=== PATIENT | female | born 1990 | race Caucasian/White ===

== ENCOUNTER 2023-01-30 16:40 | Emergency (ER) | payer OTHER ==
[~2023-01-30] VITALS: Ht 160 cm; Wt 49.9 kg
[2023-01-30 17:02] VITALS: BP 130/70
[2023-01-30] MEDS ORDERED: SULTRIDS PO (20:06)
[2023-01-30] MEDS ORDERED: CEPH500 PO (20:06)
== END 2023-01-30 20:18 | disposition home or self-care (01) ==
LOC: ER 16:40
DX: L02.212 Cutaneous abscess of back [any part, except buttock and flank] (principal); Z88.8 Allergy status to other drugs, medicaments and biological substances; Z91.040 Latex allergy status; F43.10 Post-traumatic stress disorder, unspecified; F17.290 Nicotine dependence, other tobacco product, uncomplicated; F17.200 Nicotine dependence, unspecified, uncomplicated
CPT/HCPCS: 10061; 90471; 90714; 99282-25; A9270

== ENCOUNTER 2023-04-05 22:06 | Emergency (ER) | payer OTHER ==
[~2023-04-05] VITALS: Ht 160 cm; Wt 57.6 kg
[~2023-04-05 22:06] MED LIST: CEPH500 PO; SULTRIDS PO
[2023-04-05 22:09] VITALS: BP 156/107
[2023-04-08 01:10] LABS: CHLAMYDIA TRACHOMATIS, NAA Negative (Negative)
== END 2023-04-06 00:13 | disposition home or self-care (01) ==
LOC: ER 22:06
PROVIDERS: Student in an Organized Health Care Education/Training Program
DX: N89.8 Other specified noninflammatory disorders of vagina (principal); R10.2 Pelvic and perineal pain; Z88.8 Allergy status to other drugs, medicaments and biological substances; Z91.040 Latex allergy status; F43.10 Post-traumatic stress disorder, unspecified; F17.200 Nicotine dependence, unspecified, uncomplicated; F17.290 Nicotine dependence, other tobacco product, uncomplicated
CPT/HCPCS: 76856; 81025; 87491; 87591; 99283-25

== ENCOUNTER 2023-05-28 15:32 | Emergency (ER) | payer OTHER ==
[~2023-05-28] VITALS: Ht 160 cm; Wt 49.9 kg
[2023-05-28 16:03] VITALS: BP 132/89
[2023-05-28] MEDS ORDERED: ONDA4ODT MM (16:08)
== END 2023-05-28 16:15 | disposition home or self-care (01) ==
LOC: ER 15:32
DX: T74.11XA Adult physical abuse, confirmed, initial encounter (principal); S09.90XA Unspecified injury of head, initial encounter; R45.1 Restlessness and agitation; H53.8 Other visual disturbances; Z88.8 Allergy status to other drugs, medicaments and biological substances; Z91.040 Latex allergy status; Z79.899 Other long term (current) drug therapy; F43.10 Post-traumatic stress disorder, unspecified; F17.200 Nicotine dependence, unspecified, uncomplicated; F17.290 Nicotine dependence, other tobacco product, uncomplicated
CPT/HCPCS: 99284

== ENCOUNTER 2023-06-05 01:22 | Emergency (ER) | payer OTHER ==
[~2023-06-05] VITALS: Ht 157.5 cm; Wt 59.0 kg
[~2023-06-05 01:22] MED LIST changes: +ONDA4ODT MM
[2023-06-05 01:44] VITALS: BP 146/88
== END 2023-06-06 02:49 | disposition home or self-care (01) ==
LOC: ER 01:22
DX: T63.441A Toxic effect of venom of bees, accidental (unintentional), initial encounter (principal); Z88.8 Allergy status to other drugs, medicaments and biological substances; Z91.040 Latex allergy status; Z79.899 Other long term (current) drug therapy; F43.10 Post-traumatic stress disorder, unspecified; F17.200 Nicotine dependence, unspecified, uncomplicated
CPT/HCPCS: 96372; 99283-25; A9270; J1885

== ENCOUNTER 2023-09-01 12:56 | Emergency (ER) | payer OTHER ==
[~2023-09-01] VITALS: Ht 162.6 cm; Wt 54.4 kg
[2023-09-01 13:29] VITALS: BP 123/80
[2023-09-01 18:12] LABS: Source, Urine Clean Catch
[2023-09-01 18:16] LABS: Appearance, Urine Hazy (Clear); Bilirubin, Urine Neg (Neg); Blood, Urine Neg (Neg); Glucose Qualitative, Urine Neg (Neg); Ketones, Urine Neg (Neg); Leukocyte Esterase, Urine 1+ (Neg); Nitrite, Urine Pos (Neg); Protein, Urine Neg (Neg); Specific Gravity, Urine 1.015 (1.003-1.022); Urobilinogen, Urine NORM (Normal)
[2023-09-01 18:24] LABS: Color, Urine Pale Yellow (P-Yellow)
[2023-09-01 18:26] LABS: Bacteria Many /hpf; Red Blood Cells, Urine Not Seen /hpf (0-2); Squamous Epithelial Cells Few /hpf (Few)
== END 2023-09-01 19:31 | disposition home or self-care (01) ==
LOC: ER 12:56
PROVIDERS: Physician Assistant
DX: T74.21XA Adult sexual abuse, confirmed, initial encounter (principal); F31.9 Bipolar disorder, unspecified; F17.200 Nicotine dependence, unspecified, uncomplicated; Z88.8 Allergy status to other drugs, medicaments and biological substances; Z91.040 Latex allergy status
CPT/HCPCS: 81001; 81025

== ENCOUNTER 2023-10-20 20:04 | Emergency (ER) | payer OTHER ==
[~2023-10-20] VITALS: Ht 162.6 cm; Wt 49.9 kg
[2023-10-20 20:16] VITALS: BP 134/79
== END 2023-10-20 22:50 | disposition home or self-care (01) ==
LOC: ER 20:04
DX: Z00.00 Encounter for general adult medical examination without abnormal findings (principal); F31.9 Bipolar disorder, unspecified; F44.81 Dissociative identity disorder; F20.9 Schizophrenia, unspecified; F17.200 Nicotine dependence, unspecified, uncomplicated; Z88.8 Allergy status to other drugs, medicaments and biological substances; Z91.040 Latex allergy status
CPT/HCPCS: 99283

== ENCOUNTER 2024-05-31 16:07 | Emergency (ER) | payer OTHER ==
[~2024-05-31] VITALS: Ht 160 cm; Wt 77.1 kg
[2024-05-31 16:17] VITALS: BP 117/76
[2024-05-31] MEDS ORDERED: OLAN10 PO (16:21)
[2024-05-31] MEDS ORDERED: LATUDA80 M1 PO ×3 (16:22→17:35)
[2024-05-31] MEDS ORDERED: OLANZAPINE PO ×2 (16:23→17:35)
== END 2024-05-31 16:24 | disposition home or self-care (01) ==
LOC: ER 16:07
DX: Z76.0 Encounter for issue of repeat prescription (principal); F17.200 Nicotine dependence, unspecified, uncomplicated; F43.10 Post-traumatic stress disorder, unspecified; Z79.899 Other long term (current) drug therapy; Z91.040 Latex allergy status; Z88.8 Allergy status to other drugs, medicaments and biological substances
CPT/HCPCS: 99281

== ENCOUNTER 2024-06-30 14:30 | Emergency (ER) | payer OTHER ==
[~2024-06-30] VITALS: Ht 160 cm; Wt 77.1 kg
[~2024-06-30 14:30] MED LIST changes: +LATUDA80 M1 PO; +OLAN10 PO; +OLANZAPINE PO
[2024-06-30 14:58] LABS: BASOPHILS ABSOLUTE AUTO 0.04 K/mm3 (0.00-0.23); BASOPHILS PERCENT AUTO 1 % (0-2); EOSINOPHILS ABSOLUTE AUTO 0.15 K/mm3 (0.00-0.68); EOSINOPHILS PERCENT AUTO 3 % (0-6); Hematocrit 36.2 % (33.0-51.0); Hemoglobin 12.2 g/dL (11.5-16.0); IMMATURE GRAN ABSOLUTE AUTO 0.01 K/mm3 (0.00-0.10); IMMATURE GRAN PERCENT AUTO 0 % (0-1); LYMPHOCYTES ABSOLUTE AUTO 1.14 K/mm3 (0.84-5.20); LYMPHOCYTES PERCENT AUTO 26 % (21-46); MONOCYTES ABSOLUTE AUTO 0.63 K/mm3 (0.16-1.47); MONOCYTES PERCENT AUTO 14 % (4-13); Mean Corpuscular HGB 30.1 pg (26.0-34.0); Mean Corpuscular HGB Conc 33.7 g/dL (31.5-36.5); Mean Corpuscular Volume 89 fL (80-100); Mean Platelet Volume 9.1 fL (9.1-12.4); NEUTROPHILS ABSOLUTE AUTO 2.48 K/mm3 (1.96-9.15); NEUTROPHILS PERCENT AUTO 56 % (41-73); Platelet Count 289 K/mm3 (150-400); RDW Coefficient Variation 12.3 % (11.7-14.2); Red Blood Cell Count 4.05 M/mm3 (3.80-5.20); White Blood Cell Count 4.45 K/mm3 (4.00-11.30)
[2024-06-30 15:19] LABS: Source, Urine Clean Catch
[2024-06-30 15:25] LABS: Albumin, Blood 3.6 g/dL (3.4-5.0); Bilirubin, Total 0.4 mg/dL (0.1-1.0); Bun/Creatinine Ratio 6.5 (12.0-20.0); Calcium, Blood 9.2 mg/dL (8.5-10.1); Creatinine, Blood 0.92 mg/dL (0.40-1.00); Globulin, Blood 3.7 g/dL (2.2-4.0); Potassium, Blood 3.6 mmol/L (3.5-5.5); Total Protein, Blood 7.3 g/dL (6.4-8.2)
[2024-06-30 15:42] LABS: Appearance, Urine Clear (Clear); Bilirubin, Urine Neg (Neg); Blood, Urine Neg (Neg); Color, Urine Yellow (P-Yellow); Glucose Qualitative, Urine Neg (Neg); Ketones, Urine Neg (Neg); Leukocyte Esterase, Urine Neg (Neg); Nitrite, Urine Neg (Neg); Protein, Urine Neg (Neg); Urobilinogen, Urine NORM (Normal)
[2024-06-30] MEDS ORDERED: HYDHCL25 (16:25)
[2024-06-30] MEDS ORDERED: OLAN20 MM (16:27)
[2024-06-30] MEDS ORDERED: LATUDA60 M2 PO (16:28)
[2024-06-30] MEDS ORDERED: Famotidine 10 MG/ML 2ML Vial IV ONE (16:55)
[2024-06-30] MEDS ORDERED: Ondansetron HCl 2 MG / ML 2ML Vial IV ONE (16:55)
[2024-06-30 17:31] LABS: Magnesium, Blood 2.2 mg/dL (1.6-2.4)
[2024-06-30 18:00] VITALS: BP 129/89
[2024-06-30] MEDS ORDERED: IBUP600 PO ×2 (20:05→20:06)
[2024-06-30] MEDS ORDERED: ACET500 PO ×2 (20:05→20:06)
[2024-06-30] MEDS ORDERED: Flagyl250 MG PO (20:08)
[2024-06-30] MEDS ORDERED: DOXY100 PO (20:08)
[2024-06-30] MEDS ORDERED: CefTRIAXone 500 MG Vial IM ONE (20:10)
== END 2024-06-30 20:40 | disposition home or self-care (01) ==
LOC: ER 14:30
PROVIDERS: Emergency Medicine; Physician Assistant
DX: N89.8 Other specified noninflammatory disorders of vagina (principal); R10.2 Pelvic and perineal pain; F17.200 Nicotine dependence, unspecified, uncomplicated; F43.10 Post-traumatic stress disorder, unspecified; Z91.040 Latex allergy status; Z88.8 Allergy status to other drugs, medicaments and biological substances
CPT/HCPCS: 76856; 80053; 81003; 83690; 83735; 84703; 85025; 96372-59; 96374; 96375; 99284-25; J0696; J2405

== ENCOUNTER 2024-07-23 18:04 | Emergency (ER) | payer OTHER ==
[~2024-07-23] VITALS: Ht 160 cm; Wt 89.4 kg
[~2024-07-23 18:04] MED LIST changes: +ACET500 PO; +DOXY100 PO; +Flagyl250 MG PO; +HYDHCL25; +IBUP600 PO; +LATUDA60 M2 PO; +OLAN20 MM
[2024-07-23 18:53] VITALS: BP 111/85
[2024-07-23] MEDS ORDERED: Ondansetron HCl 2 MG / ML 2ML Vial IV PRN (19:00)
[2024-07-23 19:04] LABS: BASOPHILS ABSOLUTE AUTO 0.09 K/mm3 (0.00-0.23); BASOPHILS PERCENT AUTO 1 % (0-2); EOSINOPHILS ABSOLUTE AUTO 1.58 K/mm3 (0.00-0.68); EOSINOPHILS PERCENT AUTO 22 % (0-6); Hematocrit 37.1 % (33.0-51.0); Hemoglobin 12.5 g/dL (11.5-16.0); IMMATURE GRAN ABSOLUTE AUTO 0.04 K/mm3 (0.00-0.10); IMMATURE GRAN PERCENT AUTO 1 % (0-1); LYMPHOCYTES ABSOLUTE AUTO 2.19 K/mm3 (0.84-5.20); LYMPHOCYTES PERCENT AUTO 31 % (21-46); MONOCYTES ABSOLUTE AUTO 0.59 K/mm3 (0.16-1.47); MONOCYTES PERCENT AUTO 8 % (4-13); Mean Corpuscular HGB 30.1 pg (26.0-34.0); Mean Corpuscular HGB Conc 33.7 g/dL (31.5-36.5); Mean Corpuscular Volume 89 fL (80-100); Mean Platelet Volume 9.8 fL (9.1-12.4); NEUTROPHILS ABSOLUTE AUTO 2.61 K/mm3 (1.96-9.15); NEUTROPHILS PERCENT AUTO 37 % (41-73); Platelet Count 322 K/mm3 (150-400); RDW Coefficient Variation 13.1 % (11.7-14.2); Red Blood Cell Count 4.15 M/mm3 (3.80-5.20)
[2024-07-23 19:21] LABS: Albumin, Blood 3.3 g/dL (3.4-5.0); Bilirubin, Total 0.4 mg/dL (0.1-1.0); Bun/Creatinine Ratio 15.8 (12.0-20.0); Calcium, Blood 8.9 mg/dL (8.5-10.1); Creatinine, Blood 0.95 mg/dL (0.40-1.00); Globulin, Blood 3.2 g/dL (2.2-4.0); Potassium, Blood 4.3 mmol/L (3.5-5.5); Total Protein, Blood 6.5 g/dL (6.4-8.2)
[2024-07-23] MEDS ORDERED: Ondansetron HCl 2 MG / ML 2ML Vial IV ONE (21:45)
[2024-07-23] MEDS ORDERED: Omeprazole 20 MG CapCR PO ONE (22:35)
[2024-07-23] MEDS ORDERED: OMEP20ER PO ×2 (22:41→22:48)
[2024-07-23] MEDS ORDERED: ONDA4 PO ×2 (22:41→22:48)
[2024-07-23] MEDS ORDERED: RX Prepack 2 Tabs Ondansetron ODT 4MG UD ONE (22:45)
== END 2024-07-23 22:52 | disposition home or self-care (01) ==
LOC: ER 18:04
PROVIDERS: Student in an Organized Health Care Education/Training Program
DX: R07.89 Other chest pain (principal); K21.9 Gastro-esophageal reflux disease without esophagitis; Z88.8 Allergy status to other drugs, medicaments and biological substances; Z91.040 Latex allergy status; Z79.899 Other long term (current) drug therapy
CPT/HCPCS: 71046; 80053; 83690; 84484; 85025; 93005; 93010; 96374; 99285-25; A9270; J2405

== ENCOUNTER 2024-12-16 00:32 | Emergency (ER) | payer OTHER ==
[~2024-12-16] VITALS: Ht 160 cm; Wt 108.9 kg
[~2024-12-16 00:32] MED LIST changes: +OMEP20ER PO; +ONDA4 PO
[2024-12-16] MEDS ORDERED: Ondansetron HCl 2 MG / ML 2ML Vial IV PRN (00:50)
[2024-12-16 00:57] LABS: BASOPHILS ABSOLUTE AUTO 0.04 K/mm3 (0.00-0.23); BASOPHILS PERCENT AUTO 1 % (0-2); EOSINOPHILS ABSOLUTE AUTO 0.46 K/mm3 (0.00-0.68); EOSINOPHILS PERCENT AUTO 6 % (0-6); Hematocrit 37.6 % (33.0-51.0); Hemoglobin 12.5 g/dL (11.5-16.0); IMMATURE GRAN ABSOLUTE AUTO 0.02 K/mm3 (0.00-0.10); IMMATURE GRAN PERCENT AUTO 0 % (0-1); LYMPHOCYTES ABSOLUTE AUTO 3.07 K/mm3 (0.84-5.20); LYMPHOCYTES PERCENT AUTO 41 % (21-46); MONOCYTES ABSOLUTE AUTO 0.54 K/mm3 (0.16-1.47); MONOCYTES PERCENT AUTO 7 % (4-13); Mean Corpuscular HGB 28.5 pg (26.0-34.0); Mean Corpuscular HGB Conc 33.2 g/dL (31.5-36.5); Mean Corpuscular Volume 86 fL (80-100); Mean Platelet Volume 9.3 fL (9.1-12.4); NEUTROPHILS PERCENT AUTO 45 % (41-73); Platelet Count 402 K/mm3 (150-400); RDW Coefficient Variation 13.4 % (11.7-14.2); RDW Standard Deviation 42.1 fL (35.1-46.3); Red Blood Cell Count 4.39 M/mm3 (3.80-5.20); White Blood Cell Count 7.53 K/mm3 (4.00-11.30)
[2024-12-16 01:10] LABS: Albumin, Blood 3.2 g/dL (3.4-5.0); Albumin/Globulin Ratio 0.8 (0.8-1.8); Bilirubin, Total 0.3 mg/dL (0.1-1.0); Bun/Creatinine Ratio 17.4 (12.0-20.0); Calcium, Blood 8.7 mg/dL (8.5-10.1); Creatinine, Blood 0.98 mg/dL (0.40-1.00); Globulin, Blood 3.9 g/dL (2.2-4.0); Potassium, Blood 3.7 mmol/L (3.5-5.5); Total Protein, Blood 7.1 g/dL (6.4-8.2)
[2024-12-16] MEDS ORDERED: KLOR-CON 1010 ME9 PO (01:49)
[2024-12-16] MEDS ORDERED: ABILIFY MYCITE10 M2 PO (01:49)
[2024-12-16] MEDS ORDERED: FUROSEMIDE40 MG PO (01:49)
[2024-12-16] MEDS ORDERED: IBUP400 PO (01:50)
[2024-12-16] MEDS ORDERED: Mag Hydrox/AL Hydrox/Simeth 30 ML UDC PO ONE (02:55)
[2024-12-16] MEDS ORDERED: Lidocaine 2% Viscous Soln 15 ML UDC PO ONE (02:55)
[2024-12-16] MEDS ORDERED: Pantoprazole Sodium 40 MG Injection IV ONE (02:55)
[2024-12-16] MEDS ORDERED: FAMO20 PO (05:01)
[2024-12-16 05:16] VITALS: BP 121/80
== END 2024-12-16 05:14 | disposition home or self-care (01) ==
LOC: ER 00:32
PROVIDERS: Emergency Medicine
DX: R07.89 Other chest pain (principal); K21.9 Gastro-esophageal reflux disease without esophagitis; R11.0 Nausea; E88.09 Other disorders of plasma-protein metabolism, not elsewhere classified; F31.9 Bipolar disorder, unspecified; F43.10 Post-traumatic stress disorder, unspecified; F17.200 Nicotine dependence, unspecified, uncomplicated; F44.81 Dissociative identity disorder; Z79.899 Other long term (current) drug therapy; Z88.8 Allergy status to other drugs, medicaments and biological substances
CPT/HCPCS: 71046; 80053; 83690; 84484; 85025; 93005; 93010; 96374; 96375; 99285-25; A9270; J2405; J2470

== ENCOUNTER 2025-02-01 06:46 | Emergency (ER) | payer OTHER ==
[~2025-02-01] VITALS: Ht 160 cm; Wt 104.3 kg
[~2025-02-01 06:46] MED LIST changes: +ABILIFY MYCITE10 M2 PO; +FAMO20 PO; +FUROSEMIDE40 MG PO; +IBUP400 PO; +KLOR-CON 1010 ME9 PO
[2025-02-01 06:52] VITALS: BP 144/75
== END 2025-02-01 09:34 | disposition home or self-care (01) ==
LOC: ER 06:46
DX: S93.401A Sprain of unspecified ligament of right ankle, initial encounter (principal); Z59.89 Other problems related to housing and economic circumstances; Z91.040 Latex allergy status; Z79.899 Other long term (current) drug therapy; Z88.8 Allergy status to other drugs, medicaments and biological substances; F43.10 Post-traumatic stress disorder, unspecified; F17.210 Nicotine dependence, cigarettes, uncomplicated; X50.1XXA Overexertion from prolonged static or awkward postures, initial encounter
CPT/HCPCS: 73610; 99283-25

== ENCOUNTER → 2025-05-10 | Outpatient (CLI) | payer OTHER | LOC: LAB SHORT 17:19 → LAB 17:19 | PROVIDERS: Registered Nurse | DX: Z01.419 Encounter for gynecological examination (general) (routine) without abnormal findings (principal) | CPT/HCPCS: 87624; G0145 ==

== ENCOUNTER 2025-07-05 07:42 | Day surgery (SDC) | payer OTHER ==
[~2025-07-05] VITALS: Ht 160 cm; Wt 101.6 kg
[2025-07-05] VITALS (9 sets, daily range): BP systolic 96–137; BP diastolic 74–108
[~2025-07-05 07:42] MED LIST changes: +ATOR40TA PO; +Aspir 8181 MG PO; +Budeprion Xl300 MG PO; +METO25ER PO
[2025-07-05] MEDS ORDERED: NITR.4SL SL (08:06)
[2025-07-05 08:17] LABS: BASOPHILS ABSOLUTE AUTO 0.02 K/mm3 (0.00-0.23); BASOPHILS PERCENT AUTO 0 % (0-2); EOSINOPHILS ABSOLUTE AUTO 0.21 K/mm3 (0.00-0.68); EOSINOPHILS PERCENT AUTO 4 % (0-6); Hematocrit 38.7 % (33.0-51.0); Hemoglobin 12.9 g/dL (11.5-16.0); IMMATURE GRAN ABSOLUTE AUTO 0.01 K/mm3 (0.00-0.10); IMMATURE GRAN PERCENT AUTO 0 % (0-1); LYMPHOCYTES ABSOLUTE AUTO 1.78 K/mm3 (0.84-5.20); LYMPHOCYTES PERCENT AUTO 32 % (21-46); MONOCYTES ABSOLUTE AUTO 0.41 K/mm3 (0.16-1.47); MONOCYTES PERCENT AUTO 7 % (4-13); Mean Corpuscular HGB Conc 33.3 g/dL (31.5-36.5); Mean Corpuscular Volume 85 fL (80-100); NEUTROPHILS ABSOLUTE AUTO 3.20 K/mm3 (1.96-9.15); NEUTROPHILS PERCENT AUTO 57 % (41-73); NRBC ABSOLUTE 0.00 K/mm3 (0.00-0.02); NRBC Auto 0.0 /100 WBC (0.0-0.2); Platelet Count 332 K/mm3 (150-400); RDW Coefficient Variation 14.0 % (11.7-14.2); RDW Standard Deviation 43.8 fL (35.1-46.3)
[2025-07-05] MEDS ORDERED: Heparin Sodium 1000 Units/ML 10ML MDV ONE (08:28)
[2025-07-05] MEDS ORDERED: NS 1,000 ML IV ONE ×2 (08:28→09:09)
[2025-07-05] MEDS ORDERED: NS 250 ML IV ONE (08:28)
[2025-07-05] MEDS ORDERED: Verapamil HCL 2.5 MG/ML 2ML Injection ONE (08:28)
[2025-07-05] MEDS ORDERED: Nitroglycerin 2 MG/20 ML BTL ONE (08:29)
[2025-07-05 08:31] LABS: Prothrombin Time Results 10.8 Sec (9.7-11.5)
[2025-07-05 08:36] LABS: Anion Gap 4.0 mmol/L (3-11); Blood Urea Nitrogen 15.0 mg/dL (8-24); CO2, Blood 28.0 mmol/L (21-32); Calcium, Blood 8.6 mg/dL (8.5-10.1); Chloride, Blood 110.0 mmol/L (98-108); Creatinine, Blood 0.94 mg/dL (0.40-1.00); Glucose, Blood 95.0 mg/dL (70-99); Potassium, Blood 4.2 mmol/L (3.5-5.5); Sodium, Blood 138.0 mmol/L (136-145)
[2025-07-05] MEDS ORDERED: FentaNYL Citrate 50 MCG/ML 2 ML Injection ONE (09:08)
[2025-07-05] MEDS ORDERED: Midazolam HCl 1MG / ML 2ML Vial ONE ×2 (09:09→09:41)
--- NOTE | 2025-07-05 10:15 | NUR ---
PT BACK TO RECOVERY ROOM, SITTING UP IN RECLINER. TR BAND TO R WRIST WITH 10 CC IN BAND. PT GIVEN JUICE AND BREAKFAST. PT AWAKE, BUT STS IS DROWSY.
--- NOTE | 2025-07-05 10:48 | NUR ---
PT UP TO BR AND BACK TO RECLINER. FOLLOWS R RADIAL PRECAUTIONS CORRECTLY
[2025-07-05] MEDS ORDERED: AMLO5 PO (11:08)
--- NOTE | 2025-07-05 11:34 | NUR ---
BEGAN DEFLATING TR BAND. NO BLEEDING OR HEMATOMA NOTED.
--- NOTE | 2025-07-05 11:47 | NUR ---
TR BAND FULLY DEFLATED. NO BLEEDING OR HEMATOMA.
--- NOTE | 2025-07-05 12:35 | NUR ---
PT VERBALIZE D/C INSTRUCTIONS. PT DRESSED, NO BLEEDING AT R RADIAL SITE. TR BAND REMOVED AND CLOTH DOT APPLIED. IV D/C CATHETER INTACT. PT WHEELED TO FRIENDS VEHICLE WITH D/C INSTRUCTIONS IN HAND.
== END 2025-07-05 12:30 | disposition home or self-care (01) ==
LOC: MHTC 07:42
PROVIDERS: Student in an Organized Health Care Education/Training Program
DX: R07.89 Other chest pain (principal); I25.10 Atherosclerotic heart disease of native coronary artery without angina pectoris; E78.00 Pure hypercholesterolemia, unspecified; F17.210 Nicotine dependence, cigarettes, uncomplicated; Z91.040 Latex allergy status; Z79.899 Other long term (current) drug therapy
CPT/HCPCS: 76937; 80048; 81025; 85025; 85610; 93458; 99152; 99153; C1769; C1887; C1894; J1644; J2250; J3010; J7030; J7050; Q9967